=== PATIENT | male | born 1995 | race Caucasian/White ===

== ENCOUNTER → 2017-09-02 06:50 | Outpatient (CLI) | payer MEDICAID, SELFPAY ==
--- NOTE | 2017-09-03 06:23 | SPIR_ITS ---
Spirometry PFT Testing Spirometry PFT Testing: COMPLETE PULMONARY FUNCTION TEST INTERPRETATION Brief HPI: Patient is a 22 year old male, currently under the care of Dr. Ibarra, who presents to [facility] for complete pulmonary function tests secondary to diagnosis of shortness of breath. Respiratory therapist reports good effort and reproducible results. Interpretation: Forced expiration spirometry shows no large airways obstructive ventilatory defect with an FEV1 of 101% predicted. There is some provement following bronchodilator, but this did not reach clinical significance by strict ATS criteria. Spirograms are of good quality and plateau slowly, indicating slowly emptying areas of the lungs. The respiratory flow volume loop shows decreased expiratory flow rates at high lung volumes consistent with small airways obstruction. No previous pulmonary function tests were available for review. Impression: Grossly normal spirometry with some stigmata of possible small airways disease. If asthma is a concern, consider methacholine bronchoprovocation study.
== END ==
DX: R06.02 Shortness of breath (principal); R06.2 Wheezing
CPT/HCPCS: 94060